=== PATIENT | male | born 1965 | race Caucasian/White ===

== ENCOUNTER 2016-11-30 10:34 | Emergency (ER) | payer BC, SELFPAY ==
[2016-11-30 11:05] LABS: #Eosinphils 0.2 thou/uL (0.0-0.7); #Lymphocytes 2.6 thou/uL (1.20-3.40); #Monocytes 0.7 thou/uL (0.11-0.59); #Neutrophils 4.3 thou/uL (1.40-6.50); %Basophils 0.6 % (0.0-1.0); %Eosinophils 2.7 % (0.0-10.0); %Lymphocytes 33.3 % (21.0-51.0); %Monocytes 8.5 % (0.0-10.0); Hemoglobin 15.4 g/dL (14.0-18.0); Mean Corpuscular HGB CONC 35.9 g/dL (32.0-36.0); Mean Corpuscular Hemoglobin 32.7 pg (27.0-31.0); Mean Corpuscular Volume 91.1 fl (80.0-94.0); Mean Platelet Volume 7.1 fL (7.4-10.4); Platelet Count 217 thou/uL (130-400); RBC Distribution Width 11.8 % (11.5-14.5); Red Blood Cell (RBC) Count 4.69 mill/uL (4.70-6.10); White Blood Cell (WBC) Count 7.8 thou/uL (4.8-10.8)
[2016-11-30 11:27] LABS: ALT (SGPT) 38 U/L (8-55); AST (SGOT) 26 U/L (5-34); Albumin 4.1 g/dL (3.5-5.0); Alkaline Phosphatase 91 U/L (40-150); Anion Gap 12 mmol/L (10-20); BUN (Urea Nitrogen) 9 mg/dL (8.9-20.6); Bilirubin, Total 0.4 mg/dL (0.2-1.2); Calc. Creatinine Clearance 0 mL/min (70-130); Calcium 9.2 mg/dL (7.8-10.44); Carbon Dioxide 25 mmol/L (22-29); Chloride 108 mmol/L (98-107); Estimated GFR-MDRD Greater than 90; Globulin 3.1 g/dL (2.4-3.5); Glucose 106 mg/dL (70-105); Potassium 4.1 mmol/L (3.5-5.1); Protein, Total 7.2 g/dL (6.0-8.3); Sodium 141 mmol/L (136-145)
[2016-11-30] MEDS ORDERED: Nitroglycerin 2% Ointment 1 INCH/1 GM Packet ONE (11:28)
[2016-11-30 11:38] LABS: CKMB 1.6 ng/mL (0-6.6); Troponin I Less than 0.010 ng/mL (< 0.028)
[2016-11-30] MEDS ORDERED: Fentanyl 100 MCG/2 ML VIAL ONE (11:57)
[2016-11-30 12:11] LABS: Bilirubin Negative (Negative); Blood, Urine Negative (Negative); Clarity Clear (Clear); Glucose, Urine (Dipstick) Negative (Negative); Leukocyte Negative (Negative); Nitrite Negative (Negative); Protein, Urine (Dipstick) Negative (Neg-Trace)
--- NOTE | 2016-11-30 18:40 | CT ---
CT BRAIN WITHOUT CONTRAST: Date: 11/30/[address] was done for mental status changes. The ventricles are normal in size with no shift. No intracranial bleeding, mass, or sign of acute st roke was found. The calvarium appears normal and the visible paranasal sinuses are clear. IMPRESSION: No acute intracranial findings. POS: HOME
--- NOTE | 2016-11-30 18:41 | RAD ---
PORTABLE CHEST: Date: 11/30/16 An AP portable film at 1148 hours shows mild cardiomegaly, but no congestive change or pleural effus ion. The lungs are clear. The trachea is midline. IMPRESSION: No acute thoracic findings. Cardiomegaly. POS: HOME
== END 2016-11-30 12:30 | disposition short-term general hospital (02) ==
LOC: BURERS 10:34
DX: G45.9 Transient cerebral ischemic attack, unspecified (principal); I11.9 Hypertensive heart disease without heart failure; F41.9 Anxiety disorder, unspecified
CPT/HCPCS: 36416; 70450; 71010; 80053; 81003; 82553; 84484; 85025; 93005; 94760; 96374; J3010